=== PATIENT | male | born 1945 | race Two or more races ===

== ENCOUNTER 2017-08-29 02:26 | Observation (INO) | payer OTHER ==
[2017-08-29] MEDS ORDERED: ONDANSETRON 4 MG/2 ML VIAL ONE (02:27)
[2017-08-29] MEDS ORDERED: NS 1,000 ML IV ONE (02:34)
[2017-08-29] MEDS ORDERED: ONDANSETRON 4 MG/2 ML VIAL IVP ONE (02:34)
[2017-08-29 02:52] LABS: PLATELET COUNT 173 10^3/uL (150-400)
--- NOTE | 2017-08-29 03:38 | EDPHY ---
H & P Stated Complaint: dizzy, vomiting Time Seen by Provider: 08/29/17 03:18 HPI/ROS: History obtained using the patient's son who is translating Arabic per request. HPI The patient presents with dizziness associated with nausea and vomiting for the last 1 day. The patient went on a long car ride which often induces motion sickness and dizziness yesterday morning. At about 10:00 a.m. He began to feel dizzy and his symptoms have continued until now. The dizziness is worse when he sits or stands and improved when he lies flat. At about 2:00 p.m. Yesterday he began vomiting and threw up approximately 7 times. He has not been able to take anything by mouth since then. He has not had any diarrhea or constipation. He has had frequent hiccups. He has history of similar dizziness which has improved with time. He is on blood pressure medication a combination losartan hydrochlorothiazide tab which she has been taking for the last 2 or 3 years. He does not have any vision change, decreased hearing, headache. REVIEW OF SYSTEMS Constitutional: No fever, no chills. Eyes: No discharge. ENT: No sore throat. Cardiovascular: No chest pain, no palpitations. Respiratory: No cough, no shortness of breath. Gastrointestinal: No abdominal pain, no vomiting. Genitourinary: No hematuria. Musculoskeletal: No back pain. Skin: No rashes. Neurological: No headache. PMHx: Hypertension Soc Hx: Visiting from [facility] for the last 3 months, maybe applying for permanent residence, staying with his son PHYSICAL General Appearance: Alert, no distress Eyes: Pupils equal and round no pallor or injection ENT, Mouth: Mucous membranes moist Respiratory: There are no retractions, lungs are clear to auscultation Cardiovascular: Regular rate and rhythm Gastrointestinal: Abdomen is soft and non-tender, no masses, bowel sounds normal Neurological: Alert and oriented x3, cranial nerves 2-12 intact, 5/5 strength in upper and lower extremities which is symmetric, normal finger to nose testing , no nystagmus is present Skin: Warm and dry, no rashes Musculoskeletal: Neck is supple non tender Extremities: symmetrical, full range of motion Psychiatric: Patient is oriented X 3, there is no agitation Source: Patient Exam Limitations: No limitations - Medical/Surgical History Hx Asthma: No Hx Chronic Respiratory Disease: No Hx Diabetes: No Hx Cardiac Disease: No Hx Renal Disease: No Hx Cirrhosis: No Hx Alcoholism: No Hx HIV/AIDS: No Hx Splenectomy or Spleen Trauma: No Other PMH: hypertension - Social History Smoking Status: Never smoked Constitutional: Initial Vital Signs Temperature (C) 36.8 C 08/29/17 02:28 Heart Rate 84 08/29/17 02:28 Respiratory Rate 20 08/29/17 02:28 Blood Pressure 158/97 H 08/29/17 02:28 O2 Sat (%) 95 08/29/17 02:28 O2 Delivery Mode Room Air Allergies/Adverse Reactions: No Known Allergies Allergy (Unverified 08/29/17 02:36) Home Medications: Medication Instructions Recorded HCTZ (*) 08/29/17 Medical Decision Making - Diagnostics Imaging Results: CT head without contrast demonstrates no acute bleed, discussed with Dr. Schafer of Radiology. Imaging: Discussed imaging studies w/ house calls nurse practitioner Radiologist Differential Diagnosis: This is a 72-year-old male with history of hypertension, visiting from [facility] who presents with dizziness, nausea, vomiting. On exam, he is hypertensive, other vital signs are normal, he is generally well-appearing though occasionally has hick ups. His neurologic exam is unremarkable. Differential diagnosis includes electrolyte disturbance, dehydration, peripheral vertigo, CVA. In the emergency department, patient was started on normal saline and Zofran with some improvement in his symptoms. Labs were checked and did reveal hyponatremia and hypochloremia. This is likely due to his hydrochlorothiazide. It is unclear the chronicity of his hyponatremia, however he may have suffered from motion sickness in the car and became dehydrated enough to be symptomatic from hyponatremia. I have consulted with Dr. Mei for admission to the hospital. I have explained the diagnosis and treatment plan with the patient and his son at the bedside. - Data Points Laboratory Results: Laboratory Results 08/29/17 02:35 08/29/17 02:35 08/29/17 08/29/17 08/29/17 02:35 02:35 02:35 WBC 9.79 10^3/uL H 10^3/uL (3.80-9.50) RBC 4.90 10^6/uL 10^6/uL (4.40-6.38) Hgb 14.4 g/dL g/dL (13.7-17.5) Hct 40.6 % % (40.0-51.0) MCV 82.9 fL fL (81.5-99.8) MCH 29.4 pg pg (27.9-34.1) MCHC 35.5 g/dL g/dL (32.4-36.7) RDW 13.3 % % (11.5-15.2) Plt Count 173 10^3/uL 10^3/uL (150-400) MPV 10.5 fL fL (8.7-11.7) Neut % (Auto) 77.1 % H % (39.3-74.2) Lymph % (Auto) 13.6 % L % (15.0-45.0) Bailey % (Auto) 8.7 % % (4.5-13.0) Eos % (Auto) 0.2 % L % (0.6-7.6) Baso % (Auto) 0.1 % L % (0.3-1.7) Nucleat RBC Rel Count 0.0 % % (0.0-0.2) Absolute Neuts (auto) 7.55 10^3/uL H 10^3/uL (1.70-6.50) Absolute Lymphs (auto) 1.33 10^3/uL 10^3/uL (1.00-3.00) Absolute Monos (auto) 0.85 10^3/uL H 10^3/uL (0.30-0.80) Absolute Eos (auto) 0.02 10^3/uL L 10^3/uL (0.03-0.40) Absolute Basos (auto) 0.01 10^3/uL L 10^3/uL (0.02-0.10) Absolute Nucleated RBC 0.00 10^3/uL 10^3/uL (0-0.01) Immature Gran % 0.3 % % (0.0-1.1) Immature Gran # 0.03 10^3/uL 10^3/uL (0.00-0.10) Sodium 124 mEq/L L mEq/L (135-145) Potassium 3.6 mEq/L mEq/L (3.5-5.2) Chloride 83 mEq/L L mEq/L (97-110) Carbon Dioxide 27 mEq/l mEq/l (22-31) Anion Gap 14 mEq/L mEq/L (8-16) BUN 9 mg/dL mg/dL (7-23) Creatinine 0.6 mg/dL L mg/dL (0.7-1.3) Estimated GFR > 60 Glucose 142 mg/dL H mg/dL (70-100) Serum Osmolality 271 mosmo/kg L mosmo/kg (280-297) Calcium 9.7 mg/dL mg/dL (8.5-10.4) Lipase 82 IU/L IU/L (23-300) Medications Given: Discontinued Medications Sodium Chloride (Ns) 1,000 mls @ 0 mls/hr IV ONCE ONE PRN Reason: Wide Open Stop: 08/29/17 02:35 Last Admin: 08/29/17 02:35 Dose: 1,000 mls Ondansetron HCl (Zofran) 4 mg IVP EDNOW ONE Stop: 08/29/17 02:35 Last Admin: 08/29/17 02:35 Dose: 4 mg Departure - Departure Disposition: [facility] Acute Clinical Impression: Dizziness, Hyponatremia Vomiting Qualifiers: Vomiting type: unspecified Vomiting Intractability: non-intractable Nausea presence: with nausea Qualified Code(s): R11.2 - Nausea with vomiting, unspecified HTN (hypertension) Qualifiers: Hypertension type: unspecified Qualified Code(s): I10 - Essential (primary) hypertension Condition: Fair
[2017-08-29] MEDS ORDERED: ONDANSETRON DISINTEGRATING 4 MG TAB PO PRN (04:14)
[2017-08-29] MEDS ORDERED: ACETAMINOPHEN 325 MG TAB PO PRN (04:14)
[2017-08-29] MEDS ORDERED: ONDANSETRON 4 MG/2 ML VIAL IVP PRN (04:14)
[2017-08-29] MEDS ORDERED: MECLIZINE HCL 12.5 MG TAB PO PRN (04:36)
--- NOTE | 2017-08-29 04:42 | PDGENHP ---
History and Physical - Chief Complaint Dizziness - History of Present Illness 72 yo M w/ HTN presents with dizziness. His son served as a engineering and scientific programmer and denied hospital engineering and scientific programmer services. He explains that patient became dizzy yesterday around 10 AM during a long car ride in a van. The patient has a history of motion sickness during long trips in vehicles. After this he had quite a bit of vomiting and has had minimal PO intake since. The patient denies any focal neurologic symptoms as well as fever and chills. He takes HCTZ for HTN. History Information - Allergies/Home Medication List Allergies/Adverse Reactions: No Known Allergies Allergy (Unverified 08/29/17 02:36) Home Medications: HCTZ (*) 08/29/17 [Last Taken Unknown] I have personally reviewed and updated: family history, medical history - Past Medical History hypertension - Surgical History Reports: no pertinent surgical hx - Family History Additional family history: Asked, denies - Social History Smoking Status: Never smoked Review of Systems Review of Systems: ROS: 10pt was reviewed & negative except for what was stated in HPI & below Physical Exam Physical Exam: Temp Pulse Resp BP Pulse Ox 36.8 C 84 20 158/97 H 95 08/29/17 02:37 08/29/17 02:37 08/29/17 02:37 08/29/17 02:37 08/29/17 02:37 Constitutional: appears nourished, uncomfortable Eyes: PERRL, EOMI Ears, Nose, Mouth, Throat: moist mucous membranes, no oral mucosal ulcers Cardiovascular: regular rate and rhythym, no murmur, rub, or gallop Respiratory: no respiratory distress, clear to auscultation Gastrointestinal: normoactive bowel sounds, soft, non-tender abdomen Skin: warm, normal color Musculoskeletal: full muscle strength, no muscle tenderness Neurologic: AAOx3, CN II-XII Intact Psychiatric: interacting appropriately, not anxious Lab Data & Imaging Review 08/29/17 02:35 08/29/17 02:35 WBC 9.79 10^3/uL (3.80-9.50) H 08/29/17 02:35 RBC 4.90 10^6/uL (4.40-6.38) 08/29/17 02:35 Hgb 14.4 g/dL (13.7-17.5) 08/29/17 02:35 Hct 40.6 % (40.0-51.0) 08/29/17 02:35 MCV 82.9 fL (81.5-99.8) 08/29/17 02:35 MCH 29.4 pg (27.9-34.1) 08/29/17 02:35 MCHC 35.5 g/dL (32.4-36.7) 08/29/17 02:35 RDW 13.3 % (11.5-15.2) 08/29/17 02:35 Plt Count 173 10^3/uL (150-400) 08/29/17 02:35 MPV 10.5 fL (8.7-11.7) 08/29/17 02:35 Neut % (Auto) 77.1 % (39.3-74.2) H 08/29/17 02:35 Lymph % (Auto) 13.6 % (15.0-45.0) L 08/29/17 02:35 Hill % (Auto) 8.7 % (4.5-13.0) 08/29/17 02:35 Eos % (Auto) 0.2 % (0.6-7.6) L 08/29/17 02:35 Baso % (Auto) 0.1 % (0.3-1.7) L 08/29/17 02:35 Nucleat RBC Rel Count 0.0 % (0.0-0.2) 08/29/17 02:35 Absolute Neuts (auto) 7.55 10^3/uL (1.70-6.50) H 08/29/17 02:35 Absolute Lymphs (auto) 1.33 10^3/uL (1.00-3.00) 08/29/17 02:35 Absolute Monos (auto) 0.85 10^3/uL (0.30-0.80) H 08/29/17 02:35 Absolute Eos (auto) 0.02 10^3/uL (0.03-0.40) L 08/29/17 02:35 Absolute Basos (auto) 0.01 10^3/uL (0.02-0.10) L 08/29/17 02:35 Absolute Nucleated RBC 0.00 10^3/uL (0-0.01) 08/29/17 02:35 Immature Gran % 0.3 % (0.0-1.1) 08/29/17 02:35 Immature Gran # 0.03 10^3/uL (0.00-0.10) 08/29/17 02:35 Sodium 124 mEq/L (135-145) L 08/29/17 02:35 Potassium 3.6 mEq/L (3.5-5.2) 08/29/17 02:35 Chloride 83 mEq/L (97-110) L 08/29/17 02:35 Carbon Dioxide 27 mEq/l (22-31) 08/29/17 02:35 Anion Gap 14 mEq/L (8-16) 08/29/17 02:35 BUN 9 mg/dL (7-23) 08/29/17 02:35 Creatinine 0.6 mg/dL (0.7-1.3) L 08/29/17 02:35 Estimated GFR > 60 08/29/17 02:35 Glucose 142 mg/dL (70-100) H 08/29/17 02:35 Calcium 9.7 mg/dL (8.5-10.4) 08/29/17 02:35 Lipase 82 IU/L (23-300) 08/29/17 02:35 Imaging Review: MILD ATROPHY NO BLEED NO HYDROCEPHALUS DISCUSSED WITH CARO AT 0400 Assessment & Plan Assessment: 72 yo M w/ HTN p/w dizziness. Plan: 1. Dizziness - Most likely motion sickness noting prior history and onset during long car ride. This led to vomiting and likely dehydration, which is probably exacerbating his symptoms. - Admit for observation - S/p 500 mL NS - Meclizine PRN, anti-emetics PRN - PT/OT evaluations 2. Hyponatremia - 124 on admission; I suspect this is due to dehydration from vomiting in combination with HCTZ. - S/p 500 mL NS in ED, no further fluids for now - Recheck BMP w/ morning labs - Will check Osms, Sofia, Ucr - Hold HCTZ 3. HTN - Hold home HCTZ as above Diet - Regular Code - Full Ppx - LMWH Dispo - Admit under observation status
[2017-08-29] MEDS: ENOXAPARIN 40 MG/0.4 ML SYR SC SCH (10:45)
[2017-08-29] MEDS ORDERED: NS 1,000 ML IV SCH (11:15)
--- NOTE | 2017-08-29 14:48 | HOSPPROG ---
Hospitalist Progress Note Assessment/Plan: 72 yo M w/ HTN p/w dizziness. Plan: 1. Dizziness - -related to hyponatremia - Meclizine PRN, anti-emetics PRN - PT/OT evaluations 2. Hyponatremia - -124 on admission; I suspect this is due to dehydration from vomiting in combination with HCTZ. -NS - Recheck BMP w/ morning labs - Will check Osms, Sofia, Ucr - Hold HCTZ 3. HTN - -Hold home HCTZ as above Diet - Regular Code - Full Ppx - LMWH Dispo - Admit under observation status Subjective: Feels terrible. Objective: Vital Signs Temp Pulse Resp BP Pulse Ox 36.4 C 74 17 132/70 H 96 08/29/17 11:23 08/29/17 11:23 08/29/17 11:23 08/29/17 11:23 08/29/17 11:23 Laboratory Results 08/29/17 05:51 08/28/17 08/29/17 08/30/17 05:59 05:59 05:59 Intake Total 1500 740 Output Total 400 Balance 1500 340 - Physical Exam Constitutional: uncomfortable, cachectic Eyes: PERRL, anicteric sclera Ears, Nose, Mouth, Throat: moist mucous membranes, hearing normal Cardiovascular: No JVD, No edema Respiratory: no respiratory distress, no rales or rhonchi Gastrointestinal: No tenderness, No ascites Skin: warm, normal color Musculoskeletal: no joint effusions, generalized weakness Neurologic: AAOx3 Psychiatric: interacting appropriately, not anxious, not encephalopathic ICD10 Worksheet Patient Problems: Problems Problem Status Onset Dizziness Acute Vomiting Acute Hyponatremia Acute HTN (hypertension) Acute
--- NOTE | 2017-08-29 14:56 | ASMTCMCOM ---
CM Note CM Note Notes: Pt admitted with dizziness, vomiting, dehydration & hyponatremia most likely r/t motion sickness. Pt normally resides in [facility]; here visiting his son Dinesh ([phone]). Spoke with [facility] & RN. PT ordered; awaiting eval. Pt does not have insurance. RN reports pt has a Financial Counseling business card & plans to call in the morning. CM will follow. Date Signed: 08/29/2017 02:56 PM Electronically Signed By:Keya Latham RN
[2017-08-30] MEDS ORDERED: D5W 250 ML IV ONE (02:18)
--- NOTE | 2017-08-30 02:22 | HOSPPROG ---
Hospitalist Progress Note Assessment/Plan: Notified by RN of Na of 131, last 120 at 1800. Correcting too quickly so will give 250 mL of d5w now and recheck BMP with morning labs. Objective: Vital Signs Temp Pulse Resp BP Pulse Ox 36.7 C 78 16 109/62 94 08/29/17 23:06 08/29/17 23:06 08/29/17 23:06 08/29/17 23:06 08/29/17 23:06 Laboratory Results 08/30/17 00:32 08/28/17 08/29/17 08/30/17 05:59 05:59 05:59 Intake Total 1500 3190 Output Total 2300 Balance 1500 890 ICD10 Worksheet Patient Problems: Problems Problem Status Onset Dizziness Acute HTN (hypertension) Acute Hyponatremia Acute Vomiting Acute
[2017-08-30] MEDS: ENOXAPARIN 40 MG/0.4 ML SYR SC SCH (09:14)
--- NOTE | 2017-08-30 09:57 | HOSPPROG ---
Hospitalist Progress Note Assessment/Plan: Patient is a 72-year-old male who presented with dizziness. He has a history of motion sickness after long trips in vehicles. He also had some vomiting and had minimal p. O. Intake. On admission it was noted that he had hyponatremia. This is likely secondary to taking hydrochlorothiazide as well as vomiting in combination. Today is my 1st encounter with the patient. Chart reviewed. * dizziness, likely related to motion sickness and hyponatremia -resolved *. Hyponatremia - -124 on admission -sodium 133 today * HTN - -Hold home HCTZ as above -blood pressure is 112/58. Will have him continue holding blood pressure medication x 2 more days *Plan: dc home, he has no PCP/ CM looking into it. Subjective: Luz has no pain (son was the adoption coordinator) Objective: Vital Signs Temp Pulse Resp BP Pulse Ox 36.8 C 91 16 112/58 L 95 08/30/17 08:00 08/30/17 08:00 08/30/17 08:00 08/30/17 08:00 08/30/17 08:00 Laboratory Results 08/30/17 05:07 08/29/17 08/30/17 08/31/17 05:59 05:59 05:59 Intake Total 1500 3440 Output Total 2300 Balance 1500 1140 - Physical Exam Constitutional: no apparent distress, appears nourished, not in pain Eyes: PERRL Ears, Nose, Mouth, Throat: hearing normal Cardiovascular: regular rate and rhythym Respiratory: no respiratory distress Gastrointestinal: normoactive bowel sounds Skin: warm Neurologic: other (alert) Psychiatric: interacting appropriately ICD10 Worksheet Patient Problems: Problems Problem Status Onset Dizziness Acute HTN (hypertension) Acute Hyponatremia Acute Vomiting Acute
--- NOTE | 2017-08-30 11:29 | GDS ---
[f rep st] DISCHARGE SUMMARY DISCHARGE DIAGNOSES: 1. Dizziness secondary to motion sickness as well as hyponatremia. 2. Hyponatremia. 3. Hypertension. HISTORY OF PRESENT ILLNESS: Briefly, the patient is a 72-year-old male who presented with dizziness. He has a history of motion sickness after long trips in vehicles. He was in a car for a period time and developed that. He also had vomiting and minimal p.o. intake. He is also on hydrochlorothiazide. It was noted that he had hyponatremia. He was treated with hydration. His sodium level today is 133. HOSPITAL COURSE: 1. Dizziness. This is multifactorial, resolved. 2. Hyponatremia. Sodium is 124 on admission. Today it is at 133. 3. Hypertension. His blood pressure has actually been low today. I have recommended that he hold his blood pressure medication for the next 2 days. I have asked the family to get a blood pressure cuff to monitor his blood pressure at home. I suspect his dizziness was also from hypotension. DISCHARGE CONDITION: Stable. Blood pressure is 112/58, heart rate is 91, respiratory rate is 16, O2 saturation on room air 95%, temperature 36.8 Celsius. MEDICATIONS AT DISCHARGE: Please see the EMR. DISCHARGE INSTRUCTIONS: 1. To hold his blood pressure medication for the next 2 days. 2. Check blood pressure daily and keep a record of this. If his blood pressure systolic is less than 110, to hold his blood pressure medication. 3. He needs to establish a primary care provider. He is from [facility] and plans on staying here for the next 6 months. Case Management is talking with him now. /[id number]/MODL MTDD
[2017-08-30 11:34] VITALS: BP 135/80
--- NOTE | 2017-08-30 15:38 | ASMTCMCOM ---
CM Note CM Note Notes: Pt medically stable for d/c, no CM d/c needs identified. Pt does not qualify for emergency medicaid, financial counseling met w son today and provided info. Date Signed: 08/30/2017 03:38 PM Electronically Signed By:JANNIE Melara
== END 2017-08-30 14:25 | disposition home or self-care (01) ==
LOC: F3N 05:26
PROVIDERS: ADMIT Student in an Organized Health Care Education/Training Program; ATTEND Student in an Organized Health Care Education/Training Program
DX: E87.1 Hypo-osmolality and hyponatremia (principal); T75.3XXA Motion sickness, initial encounter; E86.0 Dehydration; I10 Essential (primary) hypertension; V48.3XXA Unspecified car occupant injured in noncollision transport accident in nontraffic accident, initial encounter
CPT/HCPCS: 96374; G0378; J1650; J2405